=== PATIENT | female | born 1965 | race American Indian/Alaskan Native ===

== ENCOUNTER 2020-05-11 11:34 | Emergency (ER) | payer OTHER, SELFPAY ==
--- NOTE | 2020-05-11 13:02 | Emergency Department Report ---
HPI - General Chief Complaint: Tube Replacement Time Seen by Provider: 05/11/20 12:56 - HPI HPI: This is a 54-year-old female presents to the emergency department with a complaint that her right chest wall Vas-Cath came out last night while she was sleeping. "It was on the sheet next to me when I woke up." She just recently started getting dialysis and is dialyzed on Friday//Friday. She did get dialysis 2 days ago on Friday. Her actuarial consultant is Dr. Israel. She also has a history of hypertension and anemia. She denies any fever, chest pain, shortness of breath, back pain, nausea, vomiting. ED Past Medical Hx - Past Medical History Previous Medical History?: Yes Hx Hypertension: Yes Hx Renal Disease: Yes (Gets dialysis) - Surgical History Additional Surgical History: cyst on left ovary - Social History Smoking Status: Never Smoker - Medications Home Medications: Home Medications Medication Instructions Recorded Confirmed Last Taken Type Calcium Acetate [Phoslo] 667 mg PO TIDWM #30 capsule 04/05/20 Unknown Rx Furosemide [Lasix TAB] 40 mg PO QDAY #30 tablet 04/05/20 Unknown Rx Metoprolol [Lopressor TAB] 100 mg PO BID #60 tablet 04/05/20 Unknown Rx NIFEdipine XL [Procardia Xl] 60 mg PO Q12H #60 tablet 04/05/20 Unknown Rx hydrALAZINE [Apresoline TAB] 100 mg PO TID #90 tab 04/05/20 Unknown Rx ED Review of Systems ROS: Stated complaint: CATHATER SLIPPED OUT Other details as noted in HPI Comment: All other systems reviewed and negative Constitutional: denies: chills, fever Respiratory: denies: cough, shortness of breath Cardiovascular: denies: chest pain, palpitations Gastrointestinal: denies: abdominal pain, vomiting Musculoskeletal: denies: back pain, arthralgia Skin: denies: rash, lesions Physical Exam - Physical Exam Vital Signs: Vital Signs 05/11/20 12:30 Temperature 98.0 F Pulse Rate 92 H Respiratory 18 Rate Blood Pressure 187/98 O2 Sat by Pulse 99 Oximetry Physical Exam: GENERAL: The patient is well-developed well-nourished. HENT: Normocephalic. Atraumatic. Patient has moist mucous membranes. EYES: Extraocular motions are intact. NECK: Supple. Trachea is midline. CHEST/LUNGS: Clear to auscultation. There is no respiratory distress noted. There is a small wound from the previous Vas-Cath but there is no current bleeding, purulent discharge, or surrounding erythema. HEART/CARDIOVASCULAR: Regular. There is no tachycardia. There is no murmur. ABDOMEN: Abdomen is soft, nontender. Patient has normal bowel sounds. SKIN: Skin is warm and dry. NEURO: The patient is awake, alert, and oriented. The patient is cooperative. The patient has no focal neurologic deficits. Normal speech. MUSCULOSKELETAL: There is no tenderness or deformity. ED Course Vital Signs 05/11/20 12:30 Temperature 98.0 F Pulse Rate 92 H Respiratory 18 Rate Blood Pressure 187/98 O2 Sat by Pulse 99 Oximetry - Consultations Consultation #1: 05/11/20 13:50 The patient was seen by the vascular surgeon, Dr. Esquivel, while in the emergency department. The patient will be set up for a Vas-Cath placement outpatient tomorrow. ED Medical Decision Making - Lab Data Result diagrams: 05/11/20 13:05 05/11/20 13:05 - Medical Decision Making This patient presents with a complaint that her Vas-Cath came out during the ev ening. The patient is due for dialysis today. Vascular surgery was contacted and saw the patient in the emergency department and they have set her up to have a Vas-Cath replacement done tomorrow morning. Patient's labs were obtained and it shows a hemoglobin of 6.7 with normocytic anemia. Metabolic panel shows the renal insufficiency consistent with her end-stage renal disease but there is no hyperkalemia or signs of uremia. For this reason I spoke with the actuarial consultant who agrees with the plan for discharge home, Vas-Cath placement tomorrow, and dialysis afterwards. The patient was ordered and transfused 1 unit of packed red blood cells for her anemia and then the patient will be discharged home. Critical Care Time: Yes Critical care time in (mins) excluding proc time.: 35 Critical care attestation.: If time is entered above; I have spent that time in minutes in the direct care of this critically ill patient, excluding procedure time. Critical care time was spent on this patient in doing her initial evaluation, multiple re- evaluations, ordering and interpretation of labs and imaging, ordering of blood for transfusion, discussion with vascular and nephrology services. Critical Care Time: 35 minutes ED Disposition Clinical Impression: Anemia requiring transfusions, ESRD (end stage renal disease) on dialysis Vascular catheter dysfunction Qualifiers: Encounter type: initial encounter Qualified Code(s): T82.41XA - Breakdown (mechanical) of vascular dialysis catheter, initial encounter Hypertension Qualifiers: Hypertension type: essential hypertension Qualified Code(s): I10 - Essential (primary) hypertension Disposition: TO HOME OR SELFCARE Is pt being admited?: No Condition: Stable Instructions: Hypertension (ED), Anemia (ED), End-Stage Kidney Disease (ED) Additional Instructions: Please return to the outpatient registration tomorrow morning to have the vascular catheter replaced. Please contact your dialysis center, and your actuarial consultant, about getting dialysis done after the vascular catheter placement. Return to the emergency department with any worsening of your symptoms or with any acute distress. Referrals: PRIMARY CAREMD [Primary Care Provider] - 2-3 Days MARLA ISRAEL MD [Staff Physician] - 3-5 Days Time of Disposition: 17:47
[2020-05-11 13:20] LABS: Basophils % (Auto) 0.4 % (0.0-1.8); Eosinophils # (Auto) 0.1 K/mm3 (0.0-0.4); Eosinophils % (Auto) 1.2 % (0.0-4.3); Hemoglobin 6.7 gm/dl (10.1-14.3); Lymphocytes # (Auto) 1.4 K/mm3 (1.2-5.4); Mean Corpuscular HGB Conc 35 % (30-34); Mean Corpuscular Volume 86 fl (79-97); Monocytes # (Auto) 0.5 K/mm3 (0.0-0.8); Monocytes % (Auto) 6.4 % (0.0-7.3); Platelet Count 147 K/mm3 (140-440); Red Blood Count 2.25 M/mm3 (3.65-5.03)
[2020-05-11 13:25] LABS: Hematocrit 19.3 % (30.3-42.9)
--- NOTE | 2020-05-11 13:50 | Consultation ---
History of Present Illness - Reason for Consult Consult date: 05/11/20 PermCath fell out - History of Present Illness Patient with a history of end-stage renal disease on hemodialysis through a right chest wall PermCath. Patient normally dialyzes on Friday and Friday. Over last night, the patient woke up and noticed that her PermCath had "fallen out and was in bed next to her. No significant amount of bleeding. Patient does have anemia of chronic disease and her hemoglobin has fallen to 6.9. On examination, the patient is sitting up in bed easily conversing. No complaints. Labs are otherwise unremarkable. Past History Past Medical History: dialysis, ESRD Medications and Allergies Allergies Allergy/AdvReac Type Severity Reaction Status Date / Time No Known Allergies Allergy Unverified 03/31/20 00:00 Home Medications Medication Instructions Recorded Confirmed Last Taken Type Calcium Acetate [Phoslo] 667 mg PO TIDWM #30 capsule 04/05/20 Unknown Rx Furosemide [Lasix TAB] 40 mg PO QDAY #30 tablet 04/05/20 Unknown Rx Metoprolol [Lopressor TAB] 100 mg PO BID #60 tablet 04/05/20 Unknown Rx NIFEdipine XL [Procardia Xl] 60 mg PO Q12H #60 tablet 04/05/20 Unknown Rx hydrALAZINE [Apresoline TAB] 100 mg PO TID #90 tab 04/05/20 Unknown Rx Review of Systems All systems: negative Exam - Constitutional Vitals: Temp Pulse Resp BP Pulse Ox 98.0 F 92 H 18 187/98 99 05/11/20 12:30 05/11/20 12:30 05/11/20 12:30 05/11/20 12:30 05/11/20 12:30 General appearance: Present: no acute distress - EENT Eyes: Present: EOM intact ENT: hearing intact - Neck Neck: Present: supple, normal ROM - Respiratory Respiratory effort: normal - Cardiovascular Rhythm: regular - Extremities Extremities: Full ROM Extremity abnormal: edema - Abdominal General gastrointestinal: Present: deferred Female genitourinary: Present: deferred - Rectal Rectal Exam: deferred - Psychiatric Psychiatric: cooperative - Neurologic Neurologic: no focal deficits Results - Labs CBC & Chem 7: 05/11/20 13:05 05/11/20 13:05 Labs: Abnormal lab results 05/11/20 05/11/20 Range/Units 13:05 13:05 RBC 2.25 L (3.65-5.03) M/mm3 Hgb 6.7 L (10.1-14.3) gm/dl Hct 19.3 L* (30.3-42.9) % MCHC 35 H (30-34) % Seg Neutrophils % 72.0 H (40.0-70.0) % Chloride 96.4 L (98-107) mmol/L BUN 55 H (7-17) mg/dL Creatinine 8.4 H (0.6-1.2) mg/dL Glucose 109 H (65-100) mg/dL Assessment and Plan Patient with no emergent need for admission. Patient recently ate precluding immediate placement of PermCath. Patient will be allowed to leave the ER and scheduled for PermCath placement in the morning. Patient was instructed to come to the outpatient registration at [facility] at 630. Following placement of a new PermCath, the patient will then go to her dialysis center.
[2020-05-11] MEDS ORDERED: SODIUM CHLORIDE 0.9% 500 ML 500 ML IV ONE (14:30)
[2020-05-11 19:47] VITALS: BP 132/89
== END 2020-05-11 20:21 | disposition home or self-care (01) ==
LOC: ED 11:34
DX: T82.41XA Breakdown (mechanical) of vascular dialysis catheter, initial encounter (principal); D64.9 Anemia, unspecified; I12.0 Hypertensive chronic kidney disease with stage 5 chronic kidney disease or end stage renal disease; N18.6 End stage renal disease; Z99.2 Dependence on renal dialysis; Z98.890 Other specified postprocedural states; Z79.899 Other long term (current) drug therapy; Y92.89 Other specified places as the place of occurrence of the external cause
CPT/HCPCS: 36415; 36430; 80048; 85025; 86850; 86900; 86901; 86920; 99283; J7040; P9016

== ENCOUNTER 2020-05-12 05:41 | Day surgery (SDC) | payer OTHER ==
[2020-05-12 06:50] LABS: Basophils % (Auto) 0.5 % (0.0-1.8); Eosinophils # (Auto) 0.1 K/mm3 (0.0-0.4); Hematocrit 23.2 % (30.3-42.9); Hemoglobin 8.3 gm/dl (10.1-14.3); Lymphocytes # (Auto) 1.9 K/mm3 (1.2-5.4); Mean Corpuscular HGB Conc 36 % (30-34); Mean Corpuscular Volume 85 fl (79-97); Monocytes # (Auto) 0.7 K/mm3 (0.0-0.8); Monocytes % (Auto) 7.7 % (0.0-7.3); Platelet Count 157 K/mm3 (140-440); Red Blood Count 2.72 M/mm3 (3.65-5.03); Red Cell Distribution Width 14.4 % (13.2-15.2)
[2020-05-12] MEDS ORDERED: ceFAZolin/Water 2 GM/20 ML 2 GM/20 ML SYRINGE IV ONE (07:18)
[2020-05-12] MEDS ORDERED: LIDOCAINE 1%/EPINEPHRINE 1:100,000 VIAL (20 ML) INFILTRATI ONE (07:18)
[2020-05-12] MEDS ORDERED: HEPARIN/NS 5000 UNIT/500ML 500 ML IR ONE (07:18)
[2020-05-12] MEDS ORDERED: fentaNYL 100 MCG/2 ML INJ ONE (07:19)
[2020-05-12] MEDS ORDERED: MIDAZOLAM 2 MG/2 ML INJ ONE (07:19)
--- NOTE | 2020-05-12 07:25 | Short Stay Summary ---
Short Stay Documentation Date of service: 05/12/20 Narrative H&P: The patient is a 54 year old female with a history of hypertension and ESRD. She is on HD through a right IJ permacath. She presented to the ER at [facility] yesterday with a dislodged permacath and acute anemia. She received 1 unit of PRBC and was discharged home. She is here for replacement of her permacath. She has no complaints at this time. - History Past Medical History: ESRD, hypertension, other (Morbid Obesity) Past Surgical History: Other (Cyst removed from ovary) - Allergies and Medications Current Medications: Allergies No Known Allergies Allergy (Unverified 03/31/20 00:00) Home Medications Medication Instructions Recorded Confirmed Last Taken Type Furosemide [Lasix TAB] 40 mg PO QDAY #30 tablet 04/05/20 05/12/20 05/11/20 Rx 40 mg hydrALAZINE [Apresoline TAB] 100 mg PO TID #90 tab 04/05/20 05/12/20 05/11/20 Rx 100 mg Metoprolol [Lopressor TAB] 100 mg PO DAILY 05/12/20 05/12/20 05/11/20 History 100 mg - Physical exam General appearance: no acute distress Integumentary: other (no evidence of infection) Lungs: Normal air movement Breasts: deferred Heart: Regular rate Gastrointestinal: normal Female Genitourinary: deferred Rectal Exam: deferred Extremities: no ischemia - Brief post op/procedure progress note Date of procedure: 05/12/20 Pre-op diagnosis: Complications of Dialysis Access Post-op diagnosis: same Procedure: 1. Placement of 23 cm Bard Glidepath Permacath 2. Radiologic Supervision with Interpretation Anesthesia: local Surgeon: SÁNCHEZ GARCIA Estimated blood loss: minimal Pathology: none Condition: stable - Disposition Condition at discharge: Good Disposition: DC-01 TO HOME OR SELFCARE Short Stay Discharge Plan Activity: other (Do not shower with permacath or get permacath with) Follow up with: PRIMARY CARE, [Primary Care Provider] - 7 Days
[2020-05-12] MEDS: HEPARIN 10,000 UNITS/10 ML VIAL ONE ×2 (08:01→08:13)
[2020-05-12 09:30] VITALS: BP 170/89
--- NOTE | 2020-05-12 14:33 | Operative Report ---
Operative Report Operative Report: Date of Procedure: 05/12/2020 Pre-operative Diagnosis: Complications of Dialysis Access Post-operative Diagnosis: Same Procedure(s): 1. Placement of 23 cm Bard Glidepath Permacath 2. Radiologic Supervision with Interpretation Surgeon: London Jerome M.D. Top Cutter: Dona Anesthesia: 1% Lidocaine EBL: Minimal Counts: Correct Complications: None Condition: Stable Specimen: None Indication: The patient is a 54-year-old female with history of end-stage renal disease who is on dialysis through a right internal jugular permacath. She presented to the emergency department yesterday with complaints of a dislodged permacath and anemia. She received a transfusion with 1 unit of packed red blood cells and was discharged with the plan to return today for an elective placement of a permacath. She was given the risk, benefits, and alternative procedures and consented to the procedure. Angiographic Findings: The permacath was placed with the distal tip in the right atrium and there was no evidence of pneumothorax at the completion of the case. Description of Procedure: The patient was brought to the Polymer Specialist and laid in supine position. After a timeout was performed her right neck and chest were prepped and draped in normal sterile fashion. 1% lidocaine was used to anesthetize the skin at her previous exit site on her chest as well as her previous tract leading to her right internal jugular vein. A vertebral catheter and 0.035 stiff Glidewire were then advanced through the tract and into the right internal jugular vein. They were then advanced through the superior vena cava and into the inferior vena cava under fluoroscopy. The tract as well as the venotomy was serially dilated using the dilators from the permacath kit and I attempted to advance the permacath by Seldinger technique however I was unable to advance it through the venotomy so I used the peel-away SafeSheath to dilate the venotomy. I was still I unable to advance the permacath through the tract so I advanced the vertebral catheter into the inferior vena cava and exchanged the Glidewire for a 0.035 Amplatz wire. I then advanced a 23 Cm Bard Glidepath Permacath, by Seldinger technique, into the superior vena cava. I removed the stylette and wire and then position the permacath with the distal tip in the right atrium. Both ports easily aspirated and flushed. I then primed the catheter with the appropriate amount of heparin and secured it to the skin using 2-0 Ethilon in interrupted fashion. The catheter was then dressed with a sterile dressing. The final fluoroscopy demonstrated that the catheter was in adequate position with the distal tip in the right atrium and no evidence of pneumothorax. The patient tolerated the procedure well and was transported to the recovery area in stable condition.
== END 2020-05-12 09:30 | disposition home or self-care (01) ==
LOC: CATHLABREC 05:41
PROVIDERS: ATTEND Surgery Vascular Surgery
DX: T82.898A Other specified complication of vascular prosthetic devices, implants and grafts, initial encounter (principal); I12.0 Hypertensive chronic kidney disease with stage 5 chronic kidney disease or end stage renal disease; N18.6 End stage renal disease; D64.9 Anemia, unspecified; Z79.899 Other long term (current) drug therapy; Z98.890 Other specified postprocedural states; Y92.89 Other specified places as the place of occurrence of the external cause; Y82.8 Other medical devices associated with adverse incidents
CPT/HCPCS: 36415; 36558; 77001; 85025; C1750; C1769; J0690; J1644; J2250; J3010

== ENCOUNTER 2020-06-21 18:09 | Emergency (ER) | payer OTHER | END 2020-06-21 18:20 | disposition left against medical advice (07) | LOC: ED 18:09 | DX: Z53.21 Procedure and treatment not carried out due to patient leaving prior to being seen by health care provider (principal) ==

== ENCOUNTER 2020-06-22 06:13 | Emergency (ER) | payer OTHER ==
[2020-06-22 09:14] LABS: Basophils % (Auto) 0.5 % (0.0-1.8); Eosinophils # (Auto) 0.2 K/mm3 (0.0-0.4); Eosinophils % (Auto) 2.4 % (0.0-4.3); Hematocrit 25.9 % (30.3-42.9); Lymphocytes % (Auto) 22.5 % (13.4-35.0); Mean Corpuscular HGB Conc 35 % (30-34); Mean Corpuscular Volume 88 fl (79-97); Monocytes # (Auto) 0.6 K/mm3 (0.0-0.8); Monocytes % (Auto) 6.5 % (0.0-7.3); Platelet Count 165 K/mm3 (140-440); Red Blood Count 2.93 M/mm3 (3.65-5.03); Red Cell Distribution Width 16.4 % (13.2-15.2)
--- NOTE | 2020-06-22 09:14 | Emergency Department Report ---
ED General Adult HPI - General Chief complaint: Tube Replacement Stated complaint: DIALYSIS CATHETER REPLACEMENT Time Seen by Provider: 06/22/20 07:52 Source: patient Mode of arrival: Ambulatory Limitations: No Limitations - History of Present Illness Initial comments: 54-year-old female with history of ESRD presents to ED for dialysis catheter placement. Patient states her right chest wall PermCath fell out 40 minutes into dialysis on yesterday. Patient states she was instructed to come to the ER. She denies any shortness of breath. -: days(s) (1) Location: chest Severity scale (0 -10): 0 Improves with: none Worsens with: none Associated Symptoms: denies: shortness of breath - Related Data Home Medications Medication Instructions Recorded Confirmed Last Taken Metoprolol [Lopressor TAB] 100 mg PO DAILY 05/12/20 05/12/20 05/11/20 100 mg Previous Rx's Medication Instructions Recorded Last Taken Type Furosemide [Lasix TAB] 40 mg PO QDAY #30 tablet 04/05/20 05/11/20 Rx 40 mg hydrALAZINE [Apresoline TAB] 100 mg PO TID #90 tab 04/05/20 05/11/20 Rx 100 mg Allergies Allergy/AdvReac Type Severity Reaction Status Date / Time No Known Allergies Allergy Unverified 03/31/20 00:00 ED Review of Systems ROS: Stated complaint: DIALYSIS CATHETER REPLACEMENT Other details as noted in HPI Comment: All other systems reviewed and negative Respiratory: denies: shortness of breath Gastrointestinal: denies: nausea, vomiting ED Past Medical Hx - Past Medical History Previous Medical History?: Yes Hx Hypertension: Yes Hx Renal Disease: Yes (Gets dialysis:Fri) Hx HIV: No - Surgical History Past Surgical History?: Yes Additional Surgical History: cyst on left ovary - Social History Smoking Status: Never Smoker Substance Use Type: None - Medications Home Medications: Home Medications Medication Instructions Recorded Confirmed Last Taken Type Furosemide [Lasix TAB] 40 mg PO QDAY #30 tablet 04/05/20 05/12/20 05/11/20 Rx 40 mg hydrALAZINE [Apresoline TAB] 100 mg PO TID #90 tab 04/05/20 05/12/20 05/11/20 Rx 100 mg Metoprolol [Lopressor TAB] 100 mg PO DAILY 09/04/20 09/04/20 09/03/20 History 100 mg ED Physical Exam - General Limitations: No Limitations General appearance: alert, in no apparent distress - Head Head exam: Present: atraumatic, normocephalic - Eye Eye exam: Present: normal appearance, EOMI - ENT ENT exam: Present: mucous membranes moist - Neck Neck exam: Present: normal inspection - Respiratory Respiratory exam: Present: normal lung sounds bilaterally. Absent: respiratory distress - Cardiovascular Cardiovascular Exam: Present: regular rate, normal rhythm - GI/Abdominal GI/Abdominal exam: Absent: distended - Extremities Exam Extremities exam: Present: normal inspection - Neurological Exam Neurological exam: Present: alert, oriented X3 - Psychiatric Psychiatric exam: Present: normal affect, normal mood - Skin Skin exam: Present: warm, dry, intact, normal color ED Course Vital Signs 06/22/20 06/22/20 06:19 08:38 Temperature 98.3 F Pulse Rate 82 76 Respiratory 18 17 Rate Blood Pressure 177/91 Blood Pressure 205/105 [Left] O2 Sat by Pulse 99 98 Oximetry - Consultations Consultation #1: 06/22/20 10:26 Dr Esquivel at bedside to place another vascath. ED Medical Decision Making - Lab Data Result diagrams: 06/22/20 08:18 06/22/20 08:18 - Medical Decision Making PermCath placed by Dr. Esquivel. Patient will be discharged at this time. She reports to her dialysis tomorrow. Critical care attestation.: If time is entered above; I have spent that time in minutes in the direct care of this critically ill patient, excluding procedure time. ED Disposition Clinical Impression: Displacement of vascular dialysis catheter Disposition: DC-01 TO HOME OR SELFCARE Is pt being admited?: No Condition: Stable Instructions: Hemodialysis (ED) Referrals: PRIMARY CARE, [Primary Care Provider] - 3-5 Days Time of Disposition: 13:39
[2020-06-22 09:39] LABS: Calcium 9.5 mg/dL (8.4-10.2)
[2020-06-22 10:14] LABS: INR 1.07 (0.87-1.13); Partial Thromboplastin Time 30.3 Sec. (24.2-36.6)
[2020-06-22] MEDS ORDERED: SODIUM CHLORIDE 0.9% 250ML 250 ML ONE (11:50)
[2020-06-22] MEDS ORDERED: HEPARIN 10,000 UNITS/10 ML VIAL ONE (11:50)
[2020-06-22] MEDS ORDERED: MIDAZOLAM 2 MG/2 ML INJ ONE (11:50)
[2020-06-22] MEDS ORDERED: HEPARIN/NS 5000 UNIT/500ML 500 ML IR ONE (11:50)
[2020-06-22] MEDS ORDERED: fentaNYL 100 MCG/2 ML INJ ONE (11:54)
[2020-06-22] MEDS: LIDOCAINE (2%) 20 MG/1 ML VIAL 20 ML MDV INFILTRATI ONE ×2 (12:19→12:25)
[2020-06-22] MEDS: fentaNYL 100 MCG/2 ML INJ ONE ×2 (12:22→12:38)
--- NOTE | 2020-06-22 12:57 | Event Note ---
Date: 06/22/20 Patient with a history of end-stage renal disease on hemodialysis through a right chest wall PermCath. The patient stated that her PermCath fell out yesterday during dialysis approximately 10 minutes then. No bleeding from access site. No purulence along access site. Patient will be taken to the [facility] Operator for reinsertion.
--- NOTE | 2020-06-22 12:59 | Operative Report ---
Operative Report Operative Report: Exam: Fluoroscopic guided placement of tunneled hemodialysis catheter Clinical indication: Patient with a history of end-stage renal disease on hemodialysis through a right chest wall tunneled hemodialysis catheter. Her catheter fell out yesterday during dialysis. Date: 06/22/2020 Procedure: Following an explanation of the risks, benefits and alternatives; written informed consent was obtained. The patient was brought to the angiographic suite and placed in supine position on the examination table. Initial evaluation of the patient's right neck and chest wall demonstrated the catheter exit site with no purulence. A small scab was present over the catheter exit site. No bleeding was identified. The patient's right neck and chest wall were prepped and draped in the usual sterile fashion. 1% lidocaine was used for anesthesia. Under fluoroscopic guidance, the catheter tract was cannulated using a 5 Maori vertebral catheter and 0.035 glide advantage. Together the catheter and guidewire were manipulated through the existing tract into the IVC and then centrally under fluoroscopy. Together the catheter and guidewire were then advanced into the infrarenal IVC to document intravenous positioning and for anchoring. The catheter was removed. Serial dilation was performed over the guidewire under fluoroscopy and an attempt to dilate the tract and venotomy site. A Bard 23 cm glidepath tunneled hemodialysis catheter was then advanced over the guidewire centrally using a trocar. The trocar and guidewire were removed to position the tip in the proximal right atrium. Both ports flushed and aspirated easily and were then locked with appropriate volumes of heparin. The catheter exit site was approximated using 0 silk suture and the catheter securely fastened to the chest wall. Dermabond and a sterile dressing were then applied. The patient tolerated the procedure well. There were no immediate postprocedural complications. Conscious sedation was performed under the guidance of radiologic nursing. Continuous cardiopulmonary monitoring was utilized. Impression: Fluoroscopic guided placement of tunneled hemodialysis catheter placing a Bard 23 cm glidepath tunneled hemodialysis catheter via the right internal jugular vein.
[2020-06-22 13:54] VITALS: BP 148/97
== END 2020-06-22 13:53 | disposition home or self-care (01) ==
LOC: ED 06:13
DX: T82.42XA Displacement of vascular dialysis catheter, initial encounter (principal); I10 Essential (primary) hypertension; Z98.890 Other specified postprocedural states; Z79.899 Other long term (current) drug therapy
CPT/HCPCS: 36415; 36558; 76937; 77001; 80048; 85025; 85610; 85730; 99283; C1750; C1769; J1644; J2250; J3010; J7050; 51702

== ENCOUNTER 2021-06-25 19:50 | Observation (INO) | payer OTHER ==
--- NOTE | 2021-06-25 21:24 | Emergency Department Report ---
HPI - General Chief Complaint: Dyspnea/Respdistress Time Seen by Provider: 06/25/21 21:05 - HPI HPI: 55-year-old female presents to the emergency department, sent in from an urgent care, with a complaint of concern for volume overload as she missed dialysis today. The patient has end-stage renal disease on hemodialysis on Friday/Friday/Friday and did receive dialysis on Friday. The patient got her first dose of [employer] Covid vaccine on 06/20 and since that time has been having some nausea, vomiting, diarrhea and generalized weakness. Because of the symptoms the patient missed her dialysis session this morning. She went to the urgent care to get checked out since she did miss her dialysis session and she was told to come to the emergency department as allegedly they heard fluid on her lungs. She also has a history of hypertension. Her scooping machine tender is Dr. Minor. She denies any fever, chest pain, lower extremity edema, abdominal pain. ED Past Medical Hx - Past Medical History Previous Medical History?: Yes Hx Hypertension: Yes Hx Renal Disease: Yes (Gets dialysis:Fri) Hx HIV: No - Surgical History Past Surgical History?: Yes Additional Surgical History: cyst on left ovary - Social History Smoking Status: Never Smoker Substance Use Type: None - Medications Home Medications: Home Medications Medication Instructions Recorded Confirmed Last Taken Type Furosemide [Lasix TAB] 40 mg PO QDAY #30 tablet 04/05/20 05/12/20 05/11/20 Rx 40 mg hydrALAZINE [Apresoline TAB] 100 mg PO TID #90 tab 04/05/20 05/12/20 05/11/20 Rx 100 mg Metoprolol [Lopressor TAB] 100 mg PO DAILY 05/12/20 05/12/20 05/11/20 History 100 mg ED Review of Systems ROS: Stated complaint: FLUID IN LUNGS Other details as noted in HPI Comment: All other systems reviewed and negative Constitutional: denies: chills, fever Eyes: denies: eye pain, vision change ENT: denies: ear pain, throat pain Respiratory: cough. denies: wheezing Cardiovascular: denies: chest pain, edema Gastrointestinal: nausea, vomiting, diarrhea. denies: abdominal pain Genitourinary: denies: dysuria, discharge Musculoskeletal: denies: back pain, arthralgia Skin: denies: rash, lesions Neurological: denies: headache, weakness Physical Exam - Physical Exam Vital Signs: Vital Signs 06/25/21 20:22 Temperature 99.8 F H Pulse Rate 72 Respiratory 22 Rate Blood Pressure 146/84 O2 Sat by Pulse 97 Oximetry Physical Exam: GENERAL: The patient is well-developed well-nourished. HENT: Normocephalic. Atraumatic. Patient has moist mucous membranes. EYES: Extraocular motions are intact. NECK: Supple. Trachea is midline. CHEST/LUNGS: Coarse breath sounds. No tachypnea. Right-sided dialysis catheter. HEART/CARDIOVASCULAR: Regular. There is no tachycardia. There is no murmur. ABDOMEN: Abdomen is soft, nontender. Patient has normal bowel sounds. Obese habitus. SKIN: Skin is warm and dry. NEURO: The patient is awake, alert, and oriented. The patient is cooperative. The patient has no focal neurologic deficits. Normal speech. MUSCULOSKELETAL: There is no tenderness or deformity. There is no limitation range of motion. ED Course Vital Signs 06/25/21 20:22 Temperature 99.8 F H Pulse Rate 72 Respiratory 22 Rate Blood Pressure 146/84 O2 Sat by Pulse 97 Oximetry - Consultations Consultation #1: 06/26/21 01:05 I spoke to the patient's scooping machine tender, Dr. Minor, who agrees that the patient does not appear to require emergent dialysis this evening, but will arrange for dialysis in the morning. He asked for the patient received at least 45 g of Kayexalate. ED Medical Decision Making - Lab Data Result diagrams: 06/25/21 21:32 06/25/21 21:32 Lab Results 06/25/21 06/25/21 Range/Units 21:32 21:32 WBC 13.5 H (4.5-11.0) K/mm3 RBC 3.33 L (3.65-5.03) M/mm3 Hgb 10.6 (10.1-14.3) gm/dl Hct 31.1 (30.3-42.9) % MCV 94 (79-97) fl MCH 32 (28-32) pg MCHC 34 (30-34) % RDW 17.3 H (13.2-15.2) % Plt Count 87 L (140-440) K/mm3 Lymph % (Auto) 8.7 L (13.4-35.0) % [place] % (Auto) 6.1 (0.0-7.3) % Eos % (Auto) 0.0 (0.0-4.3) % Baso % (Auto) 0.3 (0.0-1.8) % Lymph # (Auto) 1.2 (1.2-5.4) K/mm3 [place] # (Auto) 0.8 (0.0-0.8) K/mm3 Eos # (Auto) 0.0 (0.0-0.4) K/mm3 Baso # (Auto) 0.0 (0.0-0.1) K/mm3 Seg Neutrophils % 84.9 H (40.0-70.0) % Seg Neutrophils # 11.5 H (1.8-7.7) K/mm3 Sodium 131 L (137-145) mmol/L Potassium 6.2 H* (3.6-5.0) mmol/L Chloride 90.0 L (98-107) mmol/L Carbon Dioxide 23 (22-30) mmol/L Anion Gap 24 mmol/L BUN 94 H (7-17) mg/dL Creatinine 11.6 H (0.6-1.2) mg/dL Estimated GFR 4 ml/min BUN/Creatinine Ratio 8 % Glucose 88 (65-100) mg/dL Calcium 9.7 (8.4-10.2) mg/dL Total Bilirubin 0.70 (0.1-1.2) mg/dL AST 55 H (5-40) units/L ALT 58 H (7-56) units/L Alkaline Phosphatase 119 (35-129) units/L Total Protein 7.5 (6.3-8.2) g/dL Albumin 3.4 L (3.9-5) g/dL Albumin/Globulin Ratio 0.8 % - Radiology Data Radiology results: image reviewed interpreted by me: Chest x-ray shows cardiomegaly, pulmonary vascular congestion, and some mild interstitial edema. - Medical Decision Making This patient presents to the emergency department with a complaint of some shortness of breath, nausea with vomiting, generalized weakness and fatigue since getting her Pfizer Covid shot. The patient also missed her dialysis today. She appears to be somewhat volume overloaded with coarse breath sounds heard to auscultation, and a chest x-ray that shows pulmonary vascular congestion and some interstitial edema. Labs show hyperkalemia with a potassium of 6.2, BUN of 94, creatinine of about 11. Vital signs reassuring throughout her ED course thus far. Spoke with her scooping machine tender who agrees that she does not need emergent dialysis tonight, but will provide for dialysis tomorrow morning. Patient given Kayexalate and calcium gluconate for the hyperkalemia. She will be admitted to the hospital and was accepted for admission by the hospitalist, Dr. Mcclain. Critical Care Time: No Critical care attestation.: If time is entered above; I have spent that time in minutes in the direct care of this critically ill patient, excluding procedure time. ED Disposition Clinical Impression: ESRD needing dialysis, Hyperkalemia, Missed dialysis Disposition: ADMITTED INPATIENT Is pt being admited?: Yes Condition: Serious Time of Disposition: 22:39
--- NOTE | 2021-06-25 21:39 | XRay Report ---
CHEST 2 VIEWS INDICATION / CLINICAL INFORMATION: SOB. COMPARISON: 04/02/2020 FINDINGS: SUPPORT DEVICES: Right-sided dual-lumen hemodialysis catheter noted with tip in proximal SVC. HEART / MEDIASTINUM: Enlarged but stable LUNGS / PLEURA: Mild pulmonary edema. No focal consolidation. No significant effusion. No pneumothora x. ADDITIONAL FINDINGS: No significant additional findings. IMPRESSION: Mild pulmonary edema. Signer Name: Yakov Lemons MD Signed: 06/25/2021 9:34 PM Workstation Name: [id number]
[2021-06-25 22:00] LABS: Basophils % (Auto) 0.3 % (0.0-1.8); Hematocrit 31.1 % (30.3-42.9); Hemoglobin 10.6 gm/dl (10.1-14.3); Lymphocytes # (Auto) 1.2 K/mm3 (1.2-5.4); Lymphocytes % (Auto) 8.7 % (13.4-35.0); Mean Corpuscular HGB Conc 34 % (30-34); Mean Corpuscular Volume 94 fl (79-97); Monocytes # (Auto) 0.8 K/mm3 (0.0-0.8); Monocytes % (Auto) 6.1 % (0.0-7.3); Red Blood Count 3.33 M/mm3 (3.65-5.03); Red Cell Distribution Width 17.3 % (13.2-15.2)
[2021-06-25 22:07] LABS: Platelet Count 87 K/mm3 (140-440)
[2021-06-25 22:11] LABS: Albumin 3.4 g/dL (3.9-5); Calcium 9.7 mg/dL (8.4-10.2)
[2021-06-25] MEDS ORDERED: SODIUM POLYSTYRENE 15 GM/60 ML ORAL LIQD PO ONE (22:35)
[2021-06-25] MEDS ORDERED: CALCIUM GLUCONATE 1,000 MG in SODIUM CHLORIDE 0.9% 100 ML IV ONE (22:35)
[2021-06-25] MEDS ORDERED: ONDANSETRON 4 MG/2 ML INJ IV PRN (22:50)
[2021-06-25] MEDS ORDERED: ALBUTEROL 2.5 MG/3 ML NEBU IH PRN (22:50)
[2021-06-25] MEDS ORDERED: ACETAMINOPHEN 325 MG TAB PO PRN (22:50)
--- NOTE | 2021-06-25 22:57 | History and Physical Report ---
History of Present Illness Date of examination: 06/25/21 Date of admission: 06/25/21 Chief complaint: Dyspnea Respiratory distress Missed dialysis History of present illness: 55-year-old female presents with past medical history of hypertension and end- stage renal disease on dialysis Friday and Friday was brought to the emergency room because of concern for volume overload as she missed dialysis today. The patient had dialysis on Friday. The patient got her first dose of [employer] Covid vaccine on 06/20 and since that time has been having some nausea, vomiting, diarrhea and generalized weakness. Because of the symptoms the patient missed her dialysis session this morning. She went to the urgent care to get checked out since she did miss her dialysis session and she was told to come to the emergency department as allegedly they heard fluid on her lungs. Her automatic wheel line operator is Dr. Minor. She denies any fever, chest pain, lower extremity edema, abdominal pain. In the emergency room patient is found to have volume overload, patient potassi um is 6.2, BUN 94 creatinine 11.6, chest x-ray shows mild pulmonary edema 's were going to admit the patient we will put the patient on insulin, D50, calcium gluconate and Kayexalate. Will consult automatic wheel line operator for hemodialysis in the morning Med rec is done. Advance discharge process is initiated Past History Past Medical History: ESRD, hypertension Medications and Allergies Allergies Allergy/AdvReac Type Severity Reaction Status Date / Time No Known Allergies Allergy Unverified 03/31/20 00:00 Home Medications Medication Instructions Recorded Confirmed Last Taken Type Furosemide [Lasix TAB] 40 mg PO QDAY #30 tablet 04/05/20 05/12/20 05/11/20 Rx 40 mg hydrALAZINE [Apresoline TAB] 100 mg PO TID #90 tab 04/05/20 05/12/20 05/11/20 Rx 100 mg Metoprolol [Lopressor TAB] 100 mg PO DAILY 05/12/20 05/12/20 05/11/20 History 100 mg Review of Systems Constitutional: weakness Respiratory: cough, shortness of breath Gastrointestinal: nausea, vomiting, diarrhea Exam - Constitutional Vitals: Temp Pulse Resp BP Pulse Ox 99.8 F H 72 22 146/84 97 06/25/21 20:22 06/25/21 20:22 06/25/21 20:22 06/25/21 20:22 06/25/21 20:22 General appearance: Present: no acute distress, well-nourished - EENT Eyes: Present: PERRL ENT: hearing intact, clear oral mucosa - Neck Neck: Present: supple, normal ROM - Respiratory Respiratory effort: normal Respiratory: bilateral: diminished - Cardiovascular Heart Sounds: Present: S1 & S2. Absent: rub, click - Extremities Extremities: pulses symmetrical Extremity abnormal: edema Peripheral Pulses: within normal limits - Abdominal General gastrointestinal: Present: soft, non-tender, non-distended, normal bowel sounds Female genitourinary: Present: normal - Integumentary Integumentary: Present: clear, warm, dry - Musculoskeletal Musculoskeletal: gait normal, strength equal bilaterally - Psychiatric Psychiatric: appropriate mood/affect, intact judgment & insight - Neurologic Neurologic: CNII-XII intact, moves all extremities Results - Labs CBC & Chem 7: 06/25/21 21:32 06/25/21 21:32 Labs: Laboratory Last Values WBC 13.5 K/mm3 (4.5-11.0) H 06/25/21 21:32 RBC 3.33 M/mm3 (3.65-5.03) L 06/25/21 21:32 Hgb 10.6 gm/dl (10.1-14.3) 06/25/21 21:32 Hct 31.1 % (30.3-42.9) 06/25/21 21:32 MCV 94 fl (79-97) 06/25/21 21:32 MCH 32 pg (28-32) 06/25/21 21:32 MCHC 34 % (30-34) 06/25/21 21:32 RDW 17.3 % (13.2-15.2) H 06/25/21 21:32 Plt Count 87 K/mm3 (140-440) L 06/25/21 21:32 Lymph % (Auto) 8.7 % (13.4-35.0) L 06/25/21 21:32 Sac % (Auto) 6.1 % (0.0-7.3) 06/25/21 21:32 Eos % (Auto) 0.0 % (0.0-4.3) 06/25/21 21:32 Baso % (Auto) 0.3 % (0.0-1.8) 06/25/21 21:32 Lymph # (Auto) 1.2 K/mm3 (1.2-5.4) 06/25/21 21:32 Sac # (Auto) 0.8 K/mm3 (0.0-0.8) 06/25/21 21:32 Eos # (Auto) 0.0 K/mm3 (0.0-0.4) 06/25/21 21:32 Baso # (Auto) 0.0 K/mm3 (0.0-0.1) 06/25/21 21:32 Seg Neutrophils % 84.9 % (40.0-70.0) H 06/25/21 21:32 Seg Neutrophils # 11.5 K/mm3 (1.8-7.7) H 06/25/21 21:32 Sodium 131 mmol/L (137-145) L 06/25/21 21:32 Potassium 6.2 mmol/L (3.6-5.0) H* 06/25/21 21:32 Chloride 90.0 mmol/L (98-107) L 06/25/21 21:32 Carbon Dioxide 23 mmol/L (22-30) 06/25/21 21:32 Anion Gap 24 mmol/L 06/25/21 21:32 BUN 94 mg/dL (7-17) H 06/25/21 21:32 Creatinine 11.6 mg/dL (0.6-1.2) H 06/25/21 21:32 Estimated GFR 4 ml/min 06/25/21 21:32 BUN/Creatinine Ratio 8 % 06/25/21 21:32 Glucose 88 mg/dL (65-100) 06/25/21 21:32 Calcium 9.7 mg/dL (8.4-10.2) 06/25/21 21:32 Total Bilirubin 0.70 mg/dL (0.1-1.2) 06/25/21 21:32 AST 55 units/L (5-40) H 06/25/21 21:32 ALT 58 units/L (7-56) H 06/25/21 21:32 Alkaline Phosphatase 119 units/L (35-129) 06/25/21 21:32 Total Protein 7.5 g/dL (6.3-8.2) 06/25/21 21:32 Albumin 3.4 g/dL (3.9-5) L 06/25/21 21:32 Albumin/Globulin Ratio 0.8 % 06/25/21 21:32 - Imaging and Cardiology Chest x-ray: report reviewed Assessment and Plan VTE prophylaxis?: Chemical Plan of care discussed with patient/family: Yes - Patient Problems (1) ESRD needing dialysis Status: Acute Plan to address problem: Admit the patient to the medical telemetry. Renal diet. Calcium gluconate 1 g IV x1 dose. Insulin 10 units IV x1 dose. D50 1 ampoule IV x1 dose. Kayexalate 30 g p.o. every 4 hours x2 dose. Will consult nephrology for hemodialysis in the morning. Recheck BMP in the morning. (2) Hyperkalemia Status: Acute Plan to address problem: Calcium gluconate 1 g IV x1 dose. Insulin 10 units IV x1 dose. D50 1 ampoule IV x1 dose. Kayexalate 30 g p.o. every 4 hours x2 dose. Will consult nephrology for hemodialysis in the morning. Recheck BMP in the morning. (3) Hypertension Status: Acute Plan to address problem: Hydralazine 100 mg p.o. 3 times daily. Metoprolol 100 mg p.o. daily. Lasix 40 mg p.o. daily. We will monitor the blood pressure closely (4) DVT prophylaxis Status: Acute Plan to address problem: Heparin 5000 units subcu every 8 hours for DVT prophylaxis. Pepcid 20 mg p.o. twice daily for GI prophylaxis. Patient is a full code
[2021-06-25] MEDS ORDERED: INSULIN REGULAR, HUMAN 100 UNITS/1 ML IV ONE (23:44)
[2021-06-25] MEDS ORDERED: DEXTROSE 50% IN WATER (25GM) 50 ML SYRINGE IV ONE (23:44)
[2021-06-26 06:24] LABS: Basophils % (Auto) 0.1 % (0.0-1.8); Eosinophils % (Auto) 0.1 % (0.0-4.3); Hemoglobin 9.4 gm/dl (10.1-14.3); Lymphocytes # (Auto) 0.9 K/mm3 (1.2-5.4); Lymphocytes % (Auto) 7.7 % (13.4-35.0); Mean Corpuscular HGB Conc 35 % (30-34); Mean Corpuscular Volume 92 fl (79-97); Monocytes # (Auto) 1.1 K/mm3 (0.0-0.8); Monocytes % (Auto) 9.5 % (0.0-7.3); Red Blood Count 2.93 M/mm3 (3.65-5.03); Red Cell Distribution Width 17.9 % (13.2-15.2)
[2021-06-26 06:25] LABS: Platelet Count 84 K/mm3 (140-440)
[2021-06-26 06:26] LABS: Calcium 9.4 mg/dL (8.4-10.2)
[2021-06-26] MEDS: HEPARIN 5,000 UNIT/1 ML VIAL SUB-Q SCH ×3 (07:35→22:37)
--- NOTE | 2021-06-26 08:17 | Event Note ---
Date: 06/26/21 Hemodialysis consent obtained from patient.
[2021-06-26] MEDS: IPRATROPIUM/ALBUTEROL SULFATE 3 ML AMPUL.NEB IH SCH ×2 (08:23→15:04)
[2021-06-26] MEDS ORDERED: SODIUM CHLORIDE 0.9% 100 ML IV PRN ×2 (09:00→12:25)
[2021-06-26] MEDS: hydrALAZINE 100 MG TAB PO SCH ×3 (09:27→22:30)
[2021-06-26 11:09] LABS: Hepatitis C Virus Antibody Non-Reactive (NonReactive)
[2021-06-26 11:25] LABS: Hepatitis B Surface Antigen Nonreactive (Negative)
[2021-06-26] MEDS ORDERED: WATER FOR INJ Sterile (PF) 10 ML ONE (12:31)
[2021-06-26] MEDS: ALTEPLASE 2 MG INJ IV PRN ×2 (12:50→12:51)
[2021-06-26] MEDS: METOPROLOL TARTRATE 100 MG TAB PO SCH (16:13)
[2021-06-26] MEDS: HYDROmorphone 1 MG/1 ML INJ IV PRN ×2 (16:17→21:02)
[2021-06-26] MEDS: FUROSEMIDE 40 MG TAB PO SCH (16:26)
[2021-06-26] MEDS: FAMOTIDINE 20 MG TAB PO SCH (16:26)
--- NOTE | 2021-06-26 17:25 | Discharge Summary ---
Providers - Providers Date of Admission: 06/25/21 22:50 Attending physician: OLI SALINAS MD 06/25/21 22:35 Consult to Physician [CONS] Routine Comment: Dr. De León spoke with @ [phone] Consulting Provider: MARLA ISRAEL Physician Instructions: Reason For Exam: ESRD needing dialysis, hyperkalemia Primary care physician: [employer] Hospitalization Condition: Stable Hospital course: 55-year-old female has with past medical history of morbid obesity, hypertension and end-stage renal disease on dialysis Friday and Friday .The patient got her first dose of [employer] Covid vaccine on 06/20 and since that time has been having some nausea, vomiting, diarrhea and generalized weakness and because of these symptoms the patient missed her dialysis. She went to the urgent care to get checked out since she did miss her dialysis session and she was told to come to the emergency department as reportedly for volume overload. Her ship keeper is Dr. Israel. She denies any fever, chest pain, lower extremity edema, abdominal pain. In the emergency room patient is found to have volume overload, WBC 13.5, sodium 131, potassium is 6.2, BUN 94 creatinine 11.6, chest x-ray shows mild pulmonary edema. Patient received insulin, D50, calcium gluconate and Kayexalate for hyperkalemia. Patient did not appear to have bacterial sepsis. She was afebrile. On the following day morning, sodium improved to 133, potassium 5.3 and WBC 11.2 without antibiotic intervention and then she underwent hemodialysis and nephrology cleared her for discharge. Her GI symptoms are improving and patient was able to tolerate diet. Reportedly she received Cathflo to improve blood flow via permacath. She did receive dialysis for 3 hours according to patient. Patient complains of some low back pain for which she was given pain medication. Patient was discharged to home for follow-up with her PCP in a week or sooner if needed. Discharge diagnoses ESRD on hemodialysis Volume overload with hyperkalemia due to missing dialysis x1 session Acute onset nausea, vomiting and diarrhea after receiving 5days Covid vaccine, improving Mild hyponatremia, improved Mild leukocytosis, likely reactive, improved without antibiotic therapy Hypertension Morbid obesity Disposition: HOME / SELF CARE / HOMELESS Final Discharge Diagnosis (Prints w/discharge instructions): Volume overload with hyperkalemia. ESRD on hemodialysis. Mild hyponatremia, improved. Acute GI symptoms following further Covid vaccination. Hypertension. Morbid obesity Time spent for discharge: 35 minutes Core Measure Documentation - Palliative Care Palliative Care/ Comfort Measures: Not Applicable - Core Measures Any of the following diagnoses?: none Exam - Constitutional Vitals: Temp Pulse Resp BP Pulse Ox 98.8 F 96 H 16 143/75 100 06/26/21 13:05 06/26/21 13:05 06/26/21 13:05 06/26/21 13:05 06/26/21 13:05 General appearance: Present: no acute distress, other (Morbidly obese) - EENT Eyes: Present: EOM intact ENT: hearing intact - Neck Neck: Present: supple - Respiratory Respiratory effort: normal Respiratory: bilateral: CTA, diminished - Cardiovascular Rhythm: regular - Extremities Extremities: No edema Extremity abnormal: other (Chronic discoloration below the knees symmetrical bilaterally) - Abdominal General gastrointestinal: Present: soft, non-tender, normal bowel sounds - Neurologic Neurologic: focal deficits, other (Alert and oriented, answers appropriately, grossly nonfocal motor exam) Plan Activity: advance as tolerated Weight Bearing Status: Weight Bear as Tolerated Diet: renal Special Instructions: restrict fluid intake to (1500) Follow up with: PRIMARY CARE, [Primary Care Provider] - 7 Days
[2021-06-27] MEDS: oxyCODONE /ACETAMINOPHEN 5-325MG TAB PO PRN ×2 (03:47→23:08)
[2021-06-27] MEDS: hydrALAZINE 100 MG TAB PO SCH ×3 (07:57→23:12)
[2021-06-27] MEDS: HEPARIN 5,000 UNIT/1 ML VIAL SUB-Q SCH ×3 (07:58→23:08)
[2021-06-27] MEDS: METOPROLOL TARTRATE 100 MG TAB PO SCH (09:21)
[2021-06-27] MEDS: FUROSEMIDE 40 MG TAB PO SCH (09:22)
[2021-06-27] MEDS: FAMOTIDINE 20 MG TAB PO SCH (09:22)
--- NOTE | 2021-06-27 10:53 | Consultation ---
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 Her last hemodialysis session was on 06/22. The patient got her first dose of [employer] Covid vaccine on 06/20 and since that time has been having some nausea, vomiting, diarrhea and generalized weakness. Because of the symptoms the patient missed her dialysis session yesterday morning. She went to the urgent care to get checked out since she did miss her dialysis session and she was told to come to the emergency department as allegedly they heard fluid on her lungs. She denies any fever, chest pain, N, V, abdominal pain, dizziness, syncope or weakness. In the ED patient was found to have volume overload, K 6.2, BUN 9 and Creatinine 11.6. Chest x-ray showed mild pulmonary edema. Patient was received meds for hyperkalemia. She was admitted for further evaluation. Nephrology was consulted for ESRD management. Past History Past Medical History: anemia, dialysis, ESRD, hypertension Medications and Allergies Allergies Allergy/AdvReac Type Severity Reaction Status Date / Time No Known Allergies Allergy Unverified 03/31/20 00:00 Home Medications Medication Instructions Recorded Confirmed Last Taken Type Furosemide [Lasix TAB] 40 mg PO QDAY #30 tablet 04/05/20 06/26/21 05/11/20 Rx 40 mg hydrALAZINE [Apresoline TAB] 100 mg PO TID #90 tab 04/05/20 06/26/21 05/11/20 Rx 100 mg Metoprolol [Lopressor TAB] 100 mg PO DAILY 05/12/20 06/26/21 05/11/20 History 100 mg Active Meds: Active Medications Acetaminophen (Acetaminophen 325 Mg Tab) 650 mg PO Q4H PRN PRN Reason: Pain MILD(1-3)/Fever >100.5/PAUL Albuterol (Albuterol 2.5 Mg/3 Ml Nebu) 2.5 mg IH Q4HRT PRN PRN Reason: Shortness Of Breath Alteplase, Recombinant (Alteplase 2 Mg Inj) 2 mg IV MITCH PRN PRN Reason: LINE FLUSH Last Admin: 06/26/21 12:51 Dose: 2 mg Documented by: Famotidine (Famotidine 20 Mg Tab) 20 mg PO QAM [facility] Last Admin: 06/27/21 09:22 Dose: 20 mg Documented by: Furosemide (Furosemide 40 Mg Tab) 40 mg PO QDAY [facility] Last Admin: 06/27/21 09:22 Dose: 40 mg Documented by: Heparin Sodium (Porcine) (Heparin 5,000 Unit/1 Ml Vial) 5,000 unit SUB-Q Q8HR [facility] Last Admin: 06/27/21 07:58 Dose: 5,000 unit Documented by: Hydralazine HCl (Hydralazine 100 Mg Tab) 100 mg PO TID [facility] Last Admin: 06/27/21 07:57 Dose: 100 mg Documented by: Hydromorphone HCl (Hydromorphone 1 Mg/1 Ml Inj) 0.5 mg IV Q3H PRN PRN Reason: Pain , Severe (7-10) Last Admin: 06/26/21 21:02 Dose: 0.5 mg Documented by: Sodium Chloride (Nacl 0.9%) 100 mls @ 999 mls/hr IV MITCH PRN PRN Reason: Hypotension Sodium Chloride (Nacl 0.9%) 100 mls @ 999 mls/hr IV MITCH PRN PRN Reason: Hypotension Ketorolac Tromethamine (Ketorolac 30 Mg/1 Ml Inj) 30 mg IV Q6HR [facility] Stop: 07/02/21 11:59 Lidocaine (Lidocaine 5% 1 Each Patch) 1 each TD QDAY [facility] Metoprolol Tartrate (Metoprolol Tartrate 100 Mg Tab) 100 mg PO DAILY [facility] Last Admin: 06/27/21 09:21 Dose: 100 mg Documented by: Ondansetron HCl (Ondansetron 4 Mg/2 Ml Inj) 4 mg IV Q8H PRN PRN Reason: Nausea And Vomiting Last Admin: 06/25/21 23:45 Dose: 4 mg Documented by: Oxycodone/Acetaminophen (Oxycodone /Acetaminophen 5-325mg Tab) 1 tab PO Q6H PRN PRN Reason: Pain, Moderate (4-6) Last Admin: 06/27/21 03:47 Dose: 1 tab Documented by: Sodium Chloride (Sodium Chloride 0.9% 10 Ml Flush Syringe) 10 ml IV BID SILVANO Last Admin: 06/27/21 09:23 Dose: 10 ml Documented by: Sodium Chloride (Sodium Chloride 0.9% 10 Ml Flush Syringe) 10 ml IV PRN PRN PRN Reason: LINE FLUSH Review of Systems All systems: negative Exam - Vital Signs Vital signs: Vital Signs Temp Pulse Resp BP Pulse Ox 99.8 F H 72 22 146/84 97 06/25/21 20:22 06/25/21 20:22 06/25/21 20:22 06/25/21 20:22 06/25/21 20:22 Results - Lab Results 06/26/21 05:49 06/26/21 05:49 Most recent lab results Calcium 9.4 mg/dL (8.4-10.2) 06/26/21 05:49 Assessment and Plan 1. End stage renal disease: On maintenance hemodialysis, MWF schedule. Last outpatient HD 06/22. Meds dosage based on GFR. Hemodialysis: today. 2. FEN: Hyperkalemia, HD today. Volume overload, UF with HD as tolerated. Monitor lytes and volume status. 3. HTN: Continue current meds. Monitor BP. 4. Anemia, POA: Epogen with HD as needed. Monitor. 5. Diarrhea. 6. Medical noncompliance: Counseled. Subjective: Patient was seen and examined at the bedside. General Appearance: General appearance: well-developed, well-nourished, appears stated age, obese, no distress HEENT: ATNC, PERRL, hearing intact, vision intact Neck: neck supple, trachea midline Respiratory: Clear to Auscultation Heart: regular, S1S2, no murmur Gastrointestinal: obese, normoactive bowel sounds, not tender Integumentary: LE stasis changes noted Neurologic: no focal deficit, no asterixis, alert and oriented x3 Ext: LE edema noted Hemodialysis access: R IJ Tunnel catheter, L arm AVF
--- NOTE | 2021-06-27 10:54 | Progress Note ---
Assessment and Plan 1. End stage renal disease: On maintenance hemodialysis, MWF schedule. Last outpatient HD 06/22. Meds dosage based on GFR. Hemodialysis: 06/26. HD today. 2. FEN: Hyperkalemia, HD today. Volume overload, UF with HD as tolerated. Monitor lytes and volume status. 3. HTN: Continue current meds. Monitor BP. 4. Anemia, POA: Epogen with HD as needed. Monitor. 5. Diarrhea. 6. Medical noncompliance: Counseled. Subjective: Patient was seen and examined at the bedside. General Appearance: General appearance: well-developed, well-nourished, appears stated age, obese, no distress HEENT: ATNC, PERRL, hearing intact, vision intact Neck: neck supple, trachea midline Respiratory: Clear to Auscultation Heart: regular, S1S2, no murmur Gastrointestinal: obese, normoactive bowel sounds, not tender Integumentary: LE stasis changes noted Neurologic: no focal deficit, no asterixis, alert and oriented x3 Ext: LE edema noted Hemodialysis access: R IJ Tunnel catheter, L arm AVF Subjective Date of service: 06/27/21 Objective - Vital Signs Vital signs: Vital Signs - 12hr 06/26/21 06/27/21 06/27/21 23:23 02:00 04:08 Temperature 99.6 F 97.5 F L Pulse Rate 86 93 H 84 Respiratory 19 18 Rate Blood Pressure 140/72 121/61 O2 Sat by Pulse 99 90 Oximetry 06/27/21 06/27/21 08:03 09:21 Temperature 98.9 F Pulse Rate 77 76 Respiratory 20 Rate Blood Pressure 147/75 147/75 O2 Sat by Pulse 93 Oximetry - Lab 06/26/21 05:49 06/26/21 05:49 Most recent lab results Calcium 9.4 mg/dL (8.4-10.2) 06/26/21 05:49 Medications & Allergies - Medications Allergies/Adverse Reactions: Allergies No Known Allergies Allergy (Unverified 03/31/20 00:00) Home Medications: Home Medications Medication Instructions Recorded Confirmed Last Taken Type Furosemide [Lasix TAB] 40 mg PO QDAY #30 tablet 04/05/20 06/26/21 05/11/20 Rx 40 mg hydrALAZINE [Apresoline TAB] 100 mg PO TID #90 tab 04/05/20 06/26/21 05/11/20 Rx 100 mg Metoprolol [Lopressor TAB] 100 mg PO DAILY 05/12/20 06/26/21 05/11/20 History 100 mg Active Medications: Generic Name Dose Route Start Last Admin Trade Name Freq PRN Reason Stop Dose Admin Acetaminophen 650 mg 06/25/21 22:50 Acetaminophen 325 Mg Tab PO Q4H PRN Pain MILD(1-3)/Fever >100.5/PAUL Albuterol 2.5 mg 06/25/21 22:50 Albuterol 2.5 Mg/3 Ml Nebu IH Q4HRT PRN Shortness Of Breath Alteplase, Recombinant 2 mg 06/26/21 12:25 06/26/21 12:51 Alteplase 2 Mg Inj IV 2 mg MITCH PRN Administration LINE FLUSH Famotidine 20 mg 06/26/21 10:00 06/27/21 09:22 Famotidine 20 Mg Tab PO 20 mg QAM SILVANO Administration Furosemide 40 mg 06/26/21 10:00 06/27/21 09:22 Furosemide 40 Mg Tab PO 40 mg QDAY SILVANO Administration Heparin Sodium (Porcine) 5,000 unit 06/26/21 06:00 06/27/21 07:58 Heparin 5,000 Unit/1 Ml Vial SUB-Q 5,000 unit Q8HR SILVANO Administration Hydralazine HCl 100 mg 06/26/21 08:00 06/27/21 07:57 Hydralazine 100 Mg Tab PO 100 mg TID SILVANO Administration Hydromorphone HCl 0.5 mg 06/25/21 22:50 06/26/21 21:02 Hydromorphone 1 Mg/1 Ml Inj IV 0.5 mg Q3H PRN Administration Pain , Severe (7-10) Sodium Chloride 100 mls @ 999 mls/hr 06/26/21 09:00 Nacl 0.9% IV MITCH PRN Hypotension Sodium Chloride 100 mls @ 999 mls/hr 06/26/21 12:25 Nacl 0.9% IV MITCH PRN Hypotension Ketorolac Tromethamine 30 mg 06/27/21 12:00 Ketorolac 30 Mg/1 Ml Inj IV 07/02/21 11:59 Q6HR SILVANO Lidocaine 1 each 06/27/21 11:00 Lidocaine 5% 1 Each Patch TD QDAY SILVANO Metoprolol Tartrate 100 mg 06/26/21 10:00 06/27/21 09:21 Metoprolol Tartrate 100 Mg Tab PO 100 mg DAILY SILVANO Administration Ondansetron HCl 4 mg 06/25/21 22:50 06/25/21 23:45 Ondansetron 4 Mg/2 Ml Inj IV 4 mg Q8H PRN Administration Nausea And Vomiting Oxycodone/Acetaminophen 1 tab 06/25/21 22:50 06/27/21 03:47 Oxycodone /Acetaminophen 5-325mg Tab PO 1 tab Q6H PRN Administration Pain, Moderate (4-6) Sodium Chloride 10 ml 06/26/21 10:00 06/27/21 09:23 Sodium Chloride 0.9% 10 Ml Flush Syringe IV 10 ml BID SILVANO Administration Sodium Chloride 10 ml 06/25/21 22:50 Sodium Chloride 0.9% 10 Ml Flush Syringe IV PRN PRN LINE FLUSH
[2021-06-27] MEDS: KETOROLAC 30 MG/1 ML INJ IV SCH ×2 (11:32→19:53)
[2021-06-27] MEDS: LIDOCAINE 5% 1 EACH PATCH TD SCH (11:44)
[2021-06-27] MEDS ORDERED: EPOETIN ALFA-EPBX 10,000 UNIT/1 ML VIAL SUB-Q PRN (12:33)
--- NOTE | 2021-06-27 19:33 | Event Note ---
Date: 06/27/21 Brief progress note: Patient states that her low back pain is somewhat better with her Toradol and a Lidoderm. Awaiting physical therapy assessment.
--- NOTE | 2021-06-27 19:40 | Progress Note ---
Assessment and Plan Assessment and plan: Assessment: Acute GI symptoms following COVID-19 vaccination, resolving Admitted for volume overload from missing hemodialysis ESRD on hemodialysis, receiving inpatient dialysis as per regular schedule Hyperkalemia resolved Hypertension controlled Mild obesity Acute exacerbation of low back pain malpositioning in the hospital with Plan: Patient will be discharged yesterday but deferred due to severe low back pain not able to move Toradol 30 mg every 6 hours IV Thyroid Physical therapy Consider MRI if not quickly proving back pain improves and able to get out of bed, and plan to discharge later today. Discussed the patient, nursing staff and case management assistant. History Interval history: Patient was discharged to home yesterday but did not leave the hospital due to worsening lower back pain which he according to patient due to malpositioning in the hospital bed. She is doing well room [facility]. She has difficulty getting out of bed. Ordered IV Toradol as well as Lidoderm and PT consulted. Hopefully could be discharged if better later in afternoon today. Patient denies having a frequent back pain problems. But has [facility] with her. Hospitalist Physical - Constitutional Vitals: Temp Pulse Resp BP Pulse Ox 98.0 F 67 18 121/55 95 06/27/21 15:28 06/27/21 15:28 06/27/21 15:28 06/27/21 15:28 06/27/21 15:28 General appearance: Present: no acute distress, other (Morbidly obese) - EENT Eyes: Present: PERRL, EOM intact ENT: clear oral mucosa - Neck Neck: Present: supple - Respiratory Respiratory effort: normal Respiratory: bilateral: CTA - Cardiovascular Rhythm: regular - Extremities Extremities: No edema - Abdominal General gastrointestinal: soft, non-tender - Psychiatric Psychiatric: appropriate mood/affect - Neurologic Neurologic: other (Patient is alert and oriented. Strength is normal in upper extremities. Face symmetrical. Patient resists moving her lower extremities due to worsening of low back pain.) Results - Labs CBC & Chem 7: 06/26/21 05:49 06/26/21 05:49 Labs: Laboratory Last Values WBC 11.2 K/mm3 (4.5-11.0) H 06/26/21 05:49 RBC 2.93 M/mm3 (3.65-5.03) L 06/26/21 05:49 Hgb 9.4 gm/dl (10.1-14.3) L 06/26/21 05:49 Hct 27.0 % (30.3-42.9) L 06/26/21 05:49 MCV 92 fl (79-97) 06/26/21 05:49 MCH 32 pg (28-32) 06/26/21 05:49 MCHC 35 % (30-34) H 06/26/21 05:49 RDW 17.9 % (13.2-15.2) H 06/26/21 05:49 Plt Count 84 K/mm3 (140-440) L 06/26/21 05:49 Lymph % (Auto) 7.7 % (13.4-35.0) L 06/26/21 05:49 Granite % (Auto) 9.5 % (0.0-7.3) H 06/26/21 05:49 Eos % (Auto) 0.1 % (0.0-4.3) 06/26/21 05:49 Baso % (Auto) 0.1 % (0.0-1.8) 06/26/21 05:49 Lymph # (Auto) 0.9 K/mm3 (1.2-5.4) L 06/26/21 05:49 Granite # (Auto) 1.1 K/mm3 (0.0-0.8) H 06/26/21 05:49 Eos # (Auto) 0.0 K/mm3 (0.0-0.4) 06/26/21 05:49 Baso # (Auto) 0.0 K/mm3 (0.0-0.1) 06/26/21 05:49 Seg Neutrophils % 82.6 % (40.0-70.0) H 06/26/21 05:49 Seg Neutrophils # 9.3 K/mm3 (1.8-7.7) H 06/26/21 05:49 Sodium 133 mmol/L (137-145) L 06/26/21 05:49 Potassium 5.3 mmol/L (3.6-5.0) H 06/26/21 05:49 Chloride 91.5 mmol/L (98-107) L 06/26/21 05:49 Carbon Dioxide 24 mmol/L (22-30) 06/26/21 05:49 Anion Gap 23 mmol/L 06/26/21 05:49 BUN 96 mg/dL (7-17) H 06/26/21 05:49 Creatinine 12.0 mg/dL (0.6-1.2) H 06/26/21 05:49 Estimated GFR 4 ml/min 06/26/21 05:49 BUN/Creatinine Ratio 8 % 06/26/21 05:49 Glucose 111 mg/dL (65-100) H 06/26/21 05:49 Calcium 9.4 mg/dL (8.4-10.2) 06/26/21 05:49 Total Bilirubin 0.70 mg/dL (0.1-1.2) 06/25/21 21:32 AST 55 units/L (5-40) H 06/25/21 21:32 ALT 58 units/L (7-56) H 06/25/21 21:32 Alkaline Phosphatase 119 units/L (35-129) 06/25/21 21:32 Total Protein 7.5 g/dL (6.3-8.2) 06/25/21 21:32 Albumin 3.4 g/dL (3.9-5) L 06/25/21 21:32 Albumin/Globulin Ratio 0.8 % 06/25/21 21:32 Hepatitis A IgM Ab Non-reactive (NonReactive) 06/26/21 08:23 Hep Bs Antigen Nonreactive (Negative) 06/26/21 08:23 Hep B Core IgM Ab Non-reactive (NonReactive) 06/26/21 08:23 Hepatitis C Antibody Non-reactive (NonReactive) 06/26/21 08:23 Active Medications - Current Medications Current Medications: Generic Name Dose Route Start Last Admin Trade Name Freq PRN Reason Stop Dose Admin Acetaminophen 650 mg 06/25/21 22:50 Acetaminophen 325 Mg Tab PO Q4H PRN Pain MILD(1-3)/Fever >100.5/PAUL Albuterol 2.5 mg 06/25/21 22:50 Albuterol 2.5 Mg/3 Ml Nebu IH Q4HRT PRN Shortness Of Breath Alteplase, Recombinant 2 mg 06/26/21 12:25 06/26/21 12:51 Alteplase 2 Mg Inj IV 2 mg MITCH PRN Administration LINE FLUSH Famotidine 20 mg 06/26/21 10:00 06/27/21 09:22 Famotidine 20 Mg Tab PO 20 mg QAM SILVANO Administration Furosemide 40 mg 06/26/21 10:00 06/27/21 09:22 Furosemide 40 Mg Tab PO 40 mg QDAY SILVANO Administration Heparin Sodium (Porcine) 5,000 unit 06/26/21 06:00 06/27/21 07:58 Heparin 5,000 Unit/1 Ml Vial SUB-Q 5,000 unit Q8HR SILVANO Administration Hydralazine HCl 100 mg 06/26/21 08:00 06/27/21 07:57 Hydralazine 100 Mg Tab PO 100 mg TID SILVANO Administration Hydromorphone HCl 0.5 mg 06/25/21 22:50 06/26/21 21:02 Hydromorphone 1 Mg/1 Ml Inj IV 0.5 mg Q3H PRN Administration Pain , Severe (7-10) Sodium Chloride 100 mls @ 999 mls/hr 06/26/21 12:25 Nacl 0.9% IV MITCH PRN Hypotension Ketorolac Tromethamine 30 mg 06/27/21 12:00 06/27/21 11:32 Ketorolac 30 Mg/1 Ml Inj IV 07/02/21 11:59 30 mg Q6HR SILVANO Administration Lidocaine 1 each 06/27/21 11:00 06/27/21 11:44 Lidocaine 5% 1 Each Patch TD 1 each QDAY SILVANO Administration Metoprolol Tartrate 100 mg 06/26/21 10:00 06/27/21 09:21 Metoprolol Tartrate 100 Mg Tab PO 100 mg DAILY SILVANO Administration Ondansetron HCl 4 mg 06/25/21 22:50 06/25/21 23:45 Ondansetron 4 Mg/2 Ml Inj IV 4 mg Q8H PRN Administration Nausea And Vomiting Oxycodone/Acetaminophen 1 tab 06/25/21 22:50 06/27/21 03:47 Oxycodone /Acetaminophen 5-325mg Tab PO 1 tab Q6H PRN Administration Pain, Moderate (4-6) Sodium Chloride 10 ml 06/26/21 10:00 06/27/21 09:23 Sodium Chloride 0.9% 10 Ml Flush Syringe IV 10 ml BID SILVANO Administration Sodium Chloride 10 ml 06/25/21 22:50 Sodium Chloride 0.9% 10 Ml Flush Syringe IV PRN PRN LINE FLUSH
[2021-06-28] MEDS: KETOROLAC 30 MG/1 ML INJ IV SCH ×3 (07:06→13:26)
[2021-06-28] MEDS: HEPARIN 5,000 UNIT/1 ML VIAL SUB-Q SCH ×2 (07:07→13:27)
[2021-06-28] MEDS ORDERED: SODIUM CHLORIDE 0.9% 100 ML IV PRN (08:53)
[2021-06-28] MEDS: LIDOCAINE 5% 1 EACH PATCH TD SCH (09:18)
[2021-06-28] MEDS: FAMOTIDINE 20 MG TAB PO SCH (09:19)
[2021-06-28] MEDS: METOPROLOL TARTRATE 100 MG TAB PO SCH (09:19)
[2021-06-28] MEDS: hydrALAZINE 100 MG TAB PO SCH ×2 (09:19→13:25)
[2021-06-28] MEDS: FUROSEMIDE 40 MG TAB PO SCH (09:19)
--- NOTE | 2021-06-28 09:21 | Progress Note ---
Assessment and Plan 1. End stage renal disease: On maintenance hemodialysis, MWF schedule. Last outpatient HD 06/22. Meds dosage based on GFR. Hemodialysis: 19. Pt refused HD yesterday. HD today. 2. FEN: Hyperkalemia, improved. Volume overload, UF with HD as tolerated. Monitor lytes and volume status. 3. HTN: Continue current meds. Monitor BP. 4. Anemia, POA: Epogen with HD as needed. Monitor. 5. Diarrhea: Improved. 6. Medical noncompliance: Counseled. Subjective: Patient was seen and examined at the bedside. Multiple staff at the bedside. Low back pain. General Appearance: General appearance: well-developed, well-nourished, appears stated age, obese, no distress HEENT: ATNC, PERRL, hearing intact, vision intact Neck: neck supple, trachea midline Respiratory: Clear to Auscultation Heart: regular, S1S2, no murmur Gastrointestinal: obese, normoactive bowel sounds, not tender Integumentary: LE stasis changes noted Neurologic: no focal deficit, no asterixis, alert and oriented x3 Ext: LE edema noted Hemodialysis access: R IJ Tunnel catheter, L arm AVF Subjective Date of service: 06/28/21 Objective - Vital Signs Vital signs: Vital Signs - 12hr 06/27/21 06/27/21 06/27/21 22:00 23:20 23:47 Temperature 98.9 F Pulse Rate 88 Respiratory 18 Rate Blood Pressure 136/67 O2 Sat by Pulse 96 95 88 Oximetry 06/28/21 06/28/21 06/28/21 02:00 03:38 08:12 Temperature 98.6 F 98.6 F Pulse Rate 82 79 77 Respiratory 18 20 Rate Blood Pressure 123/62 133/74 O2 Sat by Pulse 91 92 Oximetry - Lab 06/26/21 05:49 06/26/21 05:49 Most recent lab results Calcium 9.4 mg/dL (8.4-10.2) 06/26/21 05:49 Medications & Allergies - Medications Allergies/Adverse Reactions: Allergies No Known Allergies Allergy (Unverified 03/31/20 00:00) Home Medications: Home Medications Medication Instructions Recorded Confirmed Last Taken Type Furosemide [Lasix TAB] 40 mg PO QDAY #30 tablet 04/05/20 06/26/21 05/11/20 Rx 40 mg hydrALAZINE [Apresoline TAB] 100 mg PO TID #90 tab 04/05/20 06/26/21 05/11/20 Rx 100 mg Metoprolol [Lopressor TAB] 100 mg PO DAILY 05/12/20 06/26/21 05/11/20 History 100 mg Acetaminophen [Acetaminophen TAB] 650 mg PO Q4H PRN tablet 06/28/21 Unknown Rx Cyclobenzaprine [Flexeril] 10 mg PO BID #20 tablet 06/28/21 Unknown Rx Lidocaine [Lidoderm] 1 each TP DAILY #30 adh..patch 06/28/21 Unknown Rx Naproxen [EC-Naproxen] 500 mg PO BID #20 tablet.dr 06/28/21 Unknown Rx Omeprazole Magnesium [PriLOSEC Otc] 20 mg PO BID #60 tab 06/28/21 Unknown Rx Ondansetron [Zofran Odt] 4 mg PO Q8HR PRN #20 tab.rapdis 06/28/21 Unknown Rx oxyCODONE /ACETAMINOPHEN [Percocet 1 tab PO Q6H PRN #12 tablet 06/28/21 Unknown Rx 5/325 mg] predniSONE [Deltasone] 20 mg PO BID #10 tablet 06/28/21 Unknown Rx Active Medications: Generic Name Dose Route Start Last Admin Trade Name Kyleq PRN Reason Stop Dose Admin Acetaminophen 650 mg 06/25/21 22:50 Acetaminophen 325 Mg Tab PO Q4H PRN Pain MILD(1-3)/Fever >100.5/PAUL Albuterol 2.5 mg 06/25/21 22:50 Albuterol 2.5 Mg/3 Ml Nebu IH Q4HRT PRN Shortness Of Breath Alteplase, Recombinant 2 mg 06/26/21 12:25 06/26/21 12:51 Alteplase 2 Mg Inj IV 2 mg MITCH PRN Administration LINE FLUSH Dexamethasone 12 mg 06/28/21 09:05 Dexamethasone 4 Mg/Ml Vial IV 06/28/21 09:06 ONCE ONE Famotidine 20 mg 06/26/21 10:00 06/28/21 09:19 Famotidine 20 Mg Tab PO 20 mg QAM SILVANO Administration Furosemide 40 mg 06/26/21 10:00 06/28/21 09:19 Furosemide 40 Mg Tab PO 40 mg QDAY SILVANO Administration Heparin Sodium (Porcine) 5,000 unit 06/26/21 06:00 06/28/21 07:07 Heparin 5,000 Unit/1 Ml Vial SUB-Q 5,000 unit Q8HR SLIVANO Administration Hydralazine HCl 100 mg 06/26/21 08:00 06/28/21 09:19 Hydralazine 100 Mg Tab PO 100 mg TID SILVANO Administration Hydromorphone HCl 0.5 mg 06/25/21 22:50 06/26/21 21:02 Hydromorphone 1 Mg/1 Ml Inj IV 0.5 mg Q3H PRN Administration Pain , Severe (7-10) Sodium Chloride 100 mls @ 999 mls/hr 06/26/21 12:25 Nacl 0.9% IV MITCH PRN Hypotension Sodium Chloride 100 mls @ 999 mls/hr 06/28/21 08:53 Nacl 0.9% IV MITCH PRN Hypotension Ketorolac Tromethamine 30 mg 06/27/21 12:00 06/28/21 07:08 Ketorolac 30 Mg/1 Ml Inj IV 07/02/21 11:59 Not Given Q6HR SILVANO Lidocaine 1 each 06/27/21 11:00 06/28/21 09:18 Lidocaine 5% 1 Each Patch TD 1 each QDAY SILVANO Administration Metoprolol Tartrate 100 mg 06/26/21 10:00 06/28/21 09:19 Metoprolol Tartrate 100 Mg Tab PO 100 mg DAILY SILVANO Administration Ondansetron HCl 4 mg 06/25/21 22:50 06/25/21 23:45 Ondansetron 4 Mg/2 Ml Inj IV 4 mg Q8H PRN Administration Nausea And Vomiting Oxycodone/Acetaminophen 1 tab 06/25/21 22:50 06/27/21 23:08 Oxycodone /Acetaminophen 5-325mg Tab PO 1 tab Q6H PRN Administration Pain, Moderate (4-6) Sodium Chloride 10 ml 06/26/21 10:00 06/28/21 09:19 Sodium Chloride 0.9% 10 Ml Flush Syringe IV 10 ml BID SILVANO Administration Sodium Chloride 10 ml 06/25/21 22:50 Sodium Chloride 0.9% 10 Ml Flush Syringe IV PRN PRN LINE FLUSH
[2021-06-28] MEDS ORDERED: dexAMETHasone 20 MG/5 ML VIAL IV ONE (11:00)
[2021-06-28 12:10] VITALS: BP 155/80
--- NOTE | 2021-06-28 17:14 | Discharge Summary ---
Providers - Providers Date of Admission: 06/25/21 22:50 Attending physician: OLI SALINAS MD 06/25/21 22:35 Consult to Physician [CONS] Routine Comment: Dr. De León spoke with @ 1651 Consulting Provider: MARLA ISRAEL Physician Instructions: Reason For Exam: ESRD needing dialysis, hyperkalemia 06/27/21 10:38 Physical Therapy Evaluation and Treat [CONS] Urgent Comment: Reason For Exam: Low back pain Primary care physician: [employer] Hospitalization Condition: Stable Hospital course: Patient continues to experience low back pain with the difficulty getting around. However, some improved with Toradol, Decadron, Lidoderm, Dilaudid etc. Patient denies having history of back problems. She thinks it is from a laying and long portion of the hospital bed. Patient was offered subacute rehab but she refused end of preferred to go home with home PT. She refused dialysis due to availability lying down for dialysis. She also wants to defer MRI due to the same issue for now. Disposition: HOME HEALTH CARE SERVICE Time spent for discharge: 35 minutes Core Measure Documentation - Palliative Care Palliative Care/ Comfort Measures: Not Applicable Exam - Constitutional Vitals: Temp Pulse Resp BP Pulse Ox 97.6 F 77 18 155/80 94 06/28/21 11:28 06/28/21 11:28 06/28/21 13:26 06/28/21 11:28 06/28/21 11:28 Plan Activity: advance as tolerated Diet: renal Special Instructions: restrict fluid intake to (1200ml) Follow up with: PRIMARY CAREMD [Primary Care Provider] - 7 Days Prescriptions: predniSONE [Deltasone] 20 mg PO BID #10 tablet Naproxen [EC-Naproxen] 500 mg PO BID #20 tablet. Cyclobenzaprine [Flexeril] 10 mg PO BID #20 tablet Lidocaine [Lidoderm] 1 each TP DAILY #30 adh..patch oxyCODONE /ACETAMINOPHEN [Percocet 5/325 mg] 1 tab PO Q6H PRN #12 tablet PRN Reason: Pain, Moderate (4-6) Omeprazole Magnesium [PriLOSEC Otc] 20 mg PO BID #60 tab Ondansetron [Zofran Odt] 4 mg PO Q8HR PRN #20 tab.rapdis PRN Reason: Nausea And Vomiting
== END 2021-06-28 20:00 | disposition home health service (06) ==
LOC: ED 19:50 → 4A 22:50
PROVIDERS: ADMIT Hospitalist; ATTEND Internal Medicine
DX: I12.0 Hypertensive chronic kidney disease with stage 5 chronic kidney disease or end stage renal disease (principal); N18.6 End stage renal disease; D63.1 Anemia in chronic kidney disease; E87.70 Fluid overload, unspecified; E87.5 Hyperkalemia; E66.9 Obesity, unspecified; M54.9 Dorsalgia, unspecified; N83.202 Unspecified ovarian cyst, left side; M54.50 Low back pain, unspecified; R19.7 Diarrhea, unspecified; R29.818 Other symptoms and signs involving the nervous system; Z99.2 Dependence on renal dialysis; Z79.899 Other long term (current) drug therapy; Z91.14 Patient's other noncompliance with medication regimen; Z68.41 Body mass index [BMI] 40.0-44.9, adult
CPT/HCPCS: 36415; 37195; 71046; 80048; 80053; 80074; 85025; 96365; 96366; 96372; 96375; 96376; 97163; 99284; G0257; G0378; J0610; J1100; J1170; J1644; J1885; J2405; J2997; J1815